=== PATIENT | female | born 1935 | race Caucasian/White ===

== ENCOUNTER 2016-09-03 18:05 | Emergency (ER) | payer BC, MEDICARE ==
--- NOTE | ~2016-09-03 | CR63 ---
[facility] A Service of [facility] RADIOLOGY TEXT RESULTS PATIENT: LIDA RICH LOCATION: SED : 34 UNIT #: [id number] AGE: [address]: Nickolas Frank MD SEX: F ORDER DR: [id number] [address] [address] [id number] MR#: [id number] Acc #: [id number] NAME: LIDA IRCH : 1935 SEX: F STUDY DATE/TIME: 09/03/2016 18:57 UNIT: SED ROOM: STUDY DESCRIPTION: CR Chest 2 View Attending Physician: Nickolas Frank M.D. Ordering Physician: Nickolas Frank M.D. Primary Care Physician: Rena Noriega M.D. MEDICAL IMAGING REPORT This report is preliminary unless electronic signature is present. EXAM PA and lateral chest. DATE OF EXAM 09/03/2016 HISTORY 81-year-old female with lower extremity swelling and shortness of breath for 1 week. Atrial fibrillation. COMPARISON PA and lateral chest radiograph, 11/04/2015. FINDINGS Emphysematous changes are present. Interstitial thickening is present within both lungs which appears new or increased since 11/04/2015. Findings are worrisome for superimposed interstitial edema upon emphysema. Heart size is, however, within normal limits. No pleural effusion is identified. IMPRESSION Interstitial thickening within both lungs appears new or increased compared to 11/04/2015. Given the patient's history of lower extremity swelling, this could represent features of noncardiogenic interstitial edema superimposed upon emphysema. Interstitial pneumonia not excluded. No dense consolidations. Heart size within normal limits. Dictated by... Flora Peres M.D. THIS IS AN ELECTRONICALLY VERIFIED REPORT [facility] A Service [facility] RADIOLOGY TEXT RESULTS PATIENT: LIDA RICH LOCATION: SED : 34 UNIT #: [id number] AGE: [address]: Nickolas Frank MD SEX: F ORDER DR: Flora Peres M.D. at 09/04/2016 9:14 AM WOLF/ricardo TD: 09/03/2016 23:29 JOB #: [id number] MEDICAL IMAGING REPORT
--- NOTE | ~2016-09-03 | EKG ---
PATIENT: LIDA RICH UNIT #: [id number] Ventricular Rate: 90 BPM Atrial Rate: 61 BPM QRS Duration: 76 ms Q-T Interval: 356 ms QTC Calculation(Bezet): 435 ms Calculated R [place]: 14 degrees Calculated T [place]: 55 degrees Diagnosis Line: Atrial fibrillation Diagnosis Line: Poor R wave progression questionable lead position Diagnosis Line: or body habitus Abnormal ECG Diagnosis Line: When compared with ECG of 04-NOV-2015 15:23, Diagnosis Line: Septal infarct is now Present Diagnosis Line: Confirmed by LOLY HARDING MD ([id number]) on 09/04/2016 Diagnosis Line: 4:43:18 PM INTERPRETING MD: MEHDI BUTT
[~2016-09-03 18:05] MED LIST: CARTIA XT240 MG PO; ELIQUIS5 MG PO; FLEXERIL PO; IBUPROFEN PO; LEXAPRO20 MG PO; SKELAXIN PO; SYNTHROID PO; VICODIN 5/500 T1 TAB PO
[2016-09-03 19:02] LABS: BASOPHIL# 0.1 X10e3 (0-0.3); EOSINOPHIL% 0.7 % (0.0-7.0); HEMATOCRIT 39.8 % (35.0-45.0); HEMOGLOBIN 13.1 gm/dL (12.0-16.0); LYMPHOCYTE# 1.8 X10e3 (1.0-3.5); LYMPHOCYTE% 29.4 % (17.0-45.0); MEAN CELL VOLUME 95.5 FL (83-96); MEAN CORPUSCULAR HEMOGLOBIN 31.5 PG (28-34); MEAN PLATELET VOLUME 8.2 FL (6.5-11.5); MONOCYTE# 0.5 X10e3 (0-1.0); MONOCYTE% 8.4 % (3.0-12.0); NEUTROPHIL# 3.7 X10e3 (1.5-7.1); NEUTROPHIL% 60.5 % (40-75); PLATELET COUNT 256 X10e3 (140-420); RED BLOOD COUNT 4.17 X10e (3.90-5.30); RED CELL DISTRIBUTION WIDTH 14.2 % (11.0-15.5)
[2016-09-03 19:03] LABS: DIFF IND NO
[2016-09-03 19:18] LABS: POC - CKMB 1.4 ng/mL (0.0-7.9); POC - MYOGLOBIN 80.1 ng/mL (0.0-169.0); POC - TROPONIN <0.05 ng/mL (<=0.05)
[2016-09-03 19:25] LABS: ALBUMIN SERUM 4.4 g/dL (3.5-5.0); ALKALINE PHOSPHATASE 81 U/L (32-92); ALT (SGPT) 24 U/L (10-40); AST (SGOT) 25 U/L (10-42); BILIRUBIN, DIRECT 0.1 mg/dL (0.0-0.2); BILIRUBIN,INDIRECT 0.4 mg/dL (0.0-0.9); BILIRUBIN,TOTAL 0.5 mg/dL (0.2-2.0); BLOOD UREA NITROGEN 12 mg/dL (9-23); CALCIUM SERUM 9.1 mg/dL (8.4-10.2); CARBON DIOXIDE 30 mmol/L (22-31); CHLORIDE 102 mmol/L (100-111); CREATININE SERUM 0.6 mg/dL (0.6-1.4); GLOM FILT RATE Estimated ABOVE60 mL/min (>60); GLUCOSE FASTING 109 mg/dL (70-110); PROTEIN TOTAL SERUM 7.4 g/dL (6.0-8.3); SODIUM 140 mmol/L (135-145)
== END 2016-09-03 20:42 | disposition home or self-care (01) ==
LOC: SED 18:05
PROVIDERS: Emergency Medicine
DX: I50.9 Heart failure, unspecified (principal); I48.91 Unspecified atrial fibrillation; Z90.710 Acquired absence of both cervix and uterus; Z79.899 Other long term (current) drug therapy; Z88.5 Allergy status to narcotic agent
CPT/HCPCS: 36415; 71020; 80048; 80076; 82553; 83874; 83880; 84443; 84484; 85025; 93005; 96374; 99283; J1940